=== PATIENT | female | born 2005 | race Caucasian/White ===

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

== ENCOUNTER 2023-03-28 11:07 | Outpatient (CLI) | payer MEDICAID, SELFPAY ==
--- NOTE | 2023-03-28 11:19 | US_ITS ---
WS: [id number] EARLY OBSTETRICAL ULTRASOUND (<14 WEEKS). HISTORY: FIRST , FIRST TRIMESTER COMPARISON: None available. Single intrauterine gestational sac is identified. Cardiac activity at 157 BPM. [place]-rump length maria eugenia sures 3.4 cm which corresponds to a gestation of 10w2d. Normal-appearing yolk sac and amnion demonstr ated. No subchorionic hemorrhage. No free fluid. Left ovary is not visualized. Right ovary is negative. IMPRESSION: 1. Single intrauterine gestation of 10 weeks 2 days with an EDC of 10/22/2023. 2. Normal cardiac activity.
== END 2023-03-28 11:08 | disposition home or self-care (01) ==
PROVIDERS: PCP Family Medicine; Visit Provider Family Medicine
DX: Z34.01 Encounter for supervision of normal first pregnancy, first trimester (principal)
CPT/HCPCS: 76801; 76817

== ENCOUNTER 2023-05-24 12:29 | Outpatient (CLI) | payer MEDICAID, SELFPAY ==
--- NOTE | 2023-05-24 12:41 | US_ITS ---
WS: [id number] OBSTETRICAL ULTRASOUND COMPLETE HISTORY: ANATOMY CHECK COMPARISON: 03/28/2023 Quality this examination is compromised by maternal body habitus and early gestational age. Single intrauterine gestation in variable presentation. Cervix is Closed and normal length. Cervical length is 3.3 cm. Normal amount of amniotic fluid surrounds the fetus. Placenta: Posterior, no previa or abruption. Placenta grade 1 Heart: 144 BPM. Four chambers are identified. RIGHT and LEFT outflow tracts are limited but satisfact ory. Anatomy: Intracranial structures and spine are normal. kidneys, stomach and urinary bladd er are unremarkable. Abdominal wall, three-vessel cord and cord insertion site are normal. 4 extremities are present. profile: Unremarkable. Gender: Male. measurements: BPD = 3.9 cm = 17w6d; HC = 15.4 cm = 18w2d; AC = 13.6 cm = 19w0d; FL = 2.9 cm = 19w0d; EFW: 264 g. Not available. Biometry is internally concordant. AGA by ultrasound: 18w4d AARON by ultrasound: 10/21/2023 IMPRESSION: 1. Single intrauterine gestation of 18w4d with an AARON of 10/21/2023. Appropriate growth since the fi rst trimester ultrasound. 2. Unremarkable screening survey of anatomy. Quality is less than optimal due to early gestati onal age and maternal body habitus but no abnormality is identified.
== END 2023-05-24 12:30 | disposition home or self-care (01) ==
PROVIDERS: PCP Family Medicine; Visit Provider Family Medicine
DX: Z34.02 Encounter for supervision of normal first pregnancy, second trimester (principal)
CPT/HCPCS: 76805

== ENCOUNTER 2023-09-06 09:06 | Outpatient (CLI) | payer MEDICAID, SELFPAY ==
--- NOTE | 2023-09-06 09:09 | US_ITS ---
WS: [id number] LIMITED OBSTETRICAL ULTRASOUND HISTORY: UTERINE SIZE-DATE DISCREPANCY,SECOND TRIMESTER COMPARISON: 03/28/2023 Presentation: Vertex. Cervix: Closed and normal length. Placenta: LEFT uterus. No abruption or previa. Grade: 1 HEART: FHR of 136 BPM. measurements: BPD = 8.3 cm = 33w4d; 51% HC = 30.5 cm = 34w0d; 31% AC = 29.4 cm = 33w3d; 55% FL = 6.4 cm = 33w2d; 37% Several pockets of amniotic fluid are identified. The largest pocket measured vertically is 4.0 cm. EFW: 2193 g; 60% AGA by ultrasound: 33w4d AARON by ultrasound: 10/21/2023 IMPRESSION: 1. Single intrauterine gestation of 33 weeks 4 days with an EDC of 10/21/2023. Appropriate growth sin ce the first trimester ultrasound. 2. Grade 1 placenta. 3. No intrauterine growth retardation. 4. Normal amniotic fluid.
== END 2023-09-06 09:07 | disposition home or self-care (01) ==
LOC: RAD 09:06
PROVIDERS: PCP Family Medicine; Visit Provider Family Medicine
DX: O26.843 Uterine size-date discrepancy, third trimester (principal); Z3A.33 33 weeks gestation of pregnancy
CPT/HCPCS: 76816

== ENCOUNTER 2023-10-18 16:46 | Outpatient (CLI) | payer MEDICAID, SELFPAY ==
--- NOTE | 2023-10-18 16:52 | USR_ITS ---
PROCEDURE INFORMATION: Exam: US ; Follow up Exam date and time: 10/18/2023 4:58 PM Age: 17 years old Clinical indication: Screening exam; Routine US, uterus; Additional info: Uterine size discrepancy LABS AND CLINICAL REPORTS: Gestational age (Established): 39 w 2 d Estimated due date (Established): 10/23/2023 TECHNIQUE: Imaging protocol: Transabdominal ultrasound of the uterus, real time with image documentation. Follow-up (eg, re-evaluation of size by measuring standard growth parameters and amniotic fluid volume, re-evaluation of organ system(s) suspected or confirmed to be abnormal on a previous scan). COMPARISON: [place] [id number] 09/06/2023 9:32 AM FINDINGS: Gestation: Single live intrauterine gestation. heart rate: 132 bpm. position: Vertex presentation. Placenta: Grade 2 placenta. Amniotic fluid: Deepest vertical pocket 4.1 cm. stomach: There is fluid in the stomach. BIOMETRY: Estimated weight: 3536.52 g. EFW by AC, BPD, FL, HC, [place] 1985. (54th percentile). Biparietal diameter (BPD): 9.35 cm. EGA (BPD) is 38 w 0 d. 52.8 % percentile Head circumference (HC): 34.13 cm. EGA (HC) is 39 w 2 d. 41 % percentile Abdominal circumference (AC): 34.47 cm. EGA (AC) is 38 w 3 d. 47.7 % percentile Femur length (FL): 7.63 cm. EGA (FL) is 39 w 0 d. 51.6 % percentile Cephalic Index (CI): 78.05. (Normal range: 70 - 86) HC/AC: 0.99. (Normal range: 0.88 - 1.06) FL/HC: 22.36. (Normal range: 20.69 - 23.2) FL/BPD: 81.6. (Normal range: 71 - 87) FL/AC: 22.14. (Normal range: 20 - 24) MATERNAL: Cervix: The cervix is obscured by the head. US/[place] [id number] IMPRESSION: 1. Single live intrauterine gestation of 38 weeks 5 days by current ultrasound for AARON of 10/27/2023. Established AARON is 10/23/2023. AARON by prior ultrasound is 10/21/2023. 2. Estimated weight is 3537 g (54th percentile).
== END 2023-10-18 16:47 | disposition home or self-care (01) ==
LOC: RAD 16:46
PROVIDERS: PCP Family Medicine; Visit Provider Family Medicine
DX: O26.843 Uterine size-date discrepancy, third trimester (principal); Z3A.38 38 weeks gestation of pregnancy
CPT/HCPCS: 76816

== ENCOUNTER 2023-10-21 12:29 | Inpatient (IN) | payer MEDICAID, SELFPAY ==
[2023-10-21] VITALS (74 sets, daily range): BP systolic 98–157; BP diastolic 52–99; PULSE 71–129; RESP 16; TEMP 35.7–36; O2SAT 97–100; BMI 40.4
[2023-10-21 01:27] LABS: Basophils % 0.4 %; Eosinophils # 0.1 10^3/uL (0.0-0.8); Eosinophils % 0.7 %; Hematocrit 35.6 % (36-47); Lymphocytes % 28.5 %; Mean Corpuscular HGB Conc 31.2 g/dL (30-55); Mean Corpuscular Hemoglobin 24.5 pg (27-33); Mean Corpuscular Volume 78.6 fl (85-98); Mean Platelet Volume 13.6 fL (7.4-10.4); Monocytes # 0.9 10^3/uL (0.2-0.9); Monocytes % 8.6 %; Neutrophils # 6.34 10^3/uL (1.8-8.0); Neutrophils % 61.1 %; Nucleated Red Blood Cells % 0 %; Platelet Count 195 10^3/cmm (157-399); Red Blood Count 4.53 10^6/uL (3.85-5.65); Red Cell Distribution Width 14.3 % (12.1-15.1); White Blood Count 10.36 10^3/uL (4.5-13.0)
[2023-10-21] MEDS: miSOPROStol 100 mcg tablet 25 MCG VAGINAL ×3 (02:00→13:50)
--- NOTE | 2023-10-21 02:45 | PC.NURSE ---
This RN performed bedside ultrasound scan per orders from Dr. Seals to confirm vertex position. Scan printed and placed in chart.
--- NOTE | 2023-10-21 07:23 | P.HP_ITS ---
Providers/Chief Complaint 2 Admitting Physician: Nenita Seals DO Primary Care Provider: Nenita Seals DO Chief Complaint: IOL HPI [employer] History of Present Illness Shashi Lai is a 17 year old female at 39w5d presenting for induction of labor. PMHx unremarkable. course complicated by chlamydia infection- treated with negative JOHAN, itching in the 3rd trimester with normal bile acids on multiple draws. Denies cramping/contractions, LOF, vaginal bleeding prior to admission. Good movement. care was good and starting in first trimester at [facility]. Fundal heights have been greater than dates with 2 growth US wnl- EFW from US on 10/18/23 3536g- 54th percentile. Present Details : 1 Para: 0 Labs Blood type OB HPI: A (+) positive Rubella: Immune RPR: Negative GBS: Negative HBsAG: Negative Other Lab Information: HCV ab negative HIV negative Initial H/H 13.4/41.4 Gonorrhea negative Chlamydia positive on 03/08/23 with negative JOHAN 04/23/23 UCx negative 1hr GTT passed- 112 3rd trimester H/H 11.7/35.9 Review of Systems 2 Const: Denies: fever(s) or chills Card: Denies: chest pain, palpitations or edema Resp: Denies: dyspnea or productive cough : Denies: genital lesions, genital pruritis or vaginal bleeding Psych: Denies: anxiety or depression Medications/Allergies Home Medications Medication Instructions Recorded Confirmed Last Taken Type No Known Home Medications 10/21/23 10/21/23 Unknown History Allergies Allergy/AdvReac Type Severity Reaction Status Date / Time No Known Allergies Allergy Verified 10/21/23 02:51 History History History 2 1 Term 0 0 Miscarriages/Ectopic 0 Living Children 0 Vitals/I&O/Wt Last Vital Signs Temp 96.8 F L 10/21/23 00:39 Pulse 106 H 10/21/23 06:37 Resp 16 10/21/23 01:02 BP 117/75 10/21/23 06:37 O2 Del Method Room Air 10/21/23 01:08 Weight last 48 hrs Weight 243 lb Physical Exam 2 Const: COMMON NORMALS: no acute distress, healthy appearing and alert Resp: COMMON NORMALS: normal respiratory effort and clear to auscultation bilaterally Cardio: COMMON NORMALS: regular rate, regular rhythm, S1 normal heart sound present, S2 normal heart sound present and No murmurs present (Cardio) : OTHER: Gravid consistent with dates SVE on admission per nursing 0.5cm/0/high, anterior, firm Extremity: NARRATIVE EXTREMITY EXAM: No LE edema Skin: NARRATIVE SKIN EXAM: No rash on visible exposed area Data 10/21/23 00:23 Results Labs OB ([facility]): 2 Obstetrics 10/18/23 Blood Type A Positive 10/21/23 Antibody Screen Negative 10/21/23 Hct 35.6 % (36-47) L 10/21/23 Hgb 11.10 g/dL (12.4-14.8) L 10/21/23 Rho(D) Type Rh positive 10/21/23 Plt Count 195 10^3/cmm (157-399) 10/21/23 A&P Assessment and plan (1) Elective induction of labor planned: (2) Term : Plan 17yo at 39w5d admitted for elective induction of labor. Routine CBC, blood typing. FHT Category 1 Start with cytotec dose recheck in 4 hours. Intermittent EFM as long as Category 1 FHT. Fentanyl protocol, may have epidural when desired. NPO for now. Attestations 2 Medical Necessity Statement*: Shashi Lai's hospital stay will require greater than 2 midnights for induction of labor, delivery and care. Coding Level of Care Code Acute Code for Chg Fwd Diagnoses Elective induction of labor planned Term Z34.90
[2023-10-21] MEDS: acetaminophen 325 mg Tablet 650 MG PO (13:57)
[2023-10-21] MEDS: hyDROXYzine 25 mg Capsule 50 MG PO (13:58)
[2023-10-21] MEDS: lactated ringers 1,000 ML 999 ML IV (18:31)
[2023-10-21] MEDS: dextrose 5%-lactated ringers 1,000 ML 125 ML IV (20:00)
[2023-10-21] MEDS: ROPivacaine syringe 100 MG/50 ML SYRINGE 10 MG EPIDURAL (20:41)
--- NOTE | 2023-10-21 20:44 | P.ANESASSM_ITS ---
Pre-Anesthetic Assessment Height/Weight: Height 1.65 m Weight 110.223 kg Temp Pulse Resp BP Pulse Ox O2 Del Method 96.6 F L 102 H 16 110/69 99 Room Air 10/21/23 15:49 10/21/23 20:40 10/21/23 11:40 10/21/23 20:40 10/21/23 20:40 10/21/23 01:08 Preop Diagnosis: IUP Labor Epidural Familial anesthetic complications: None Was Beta Daryl taken within 24 hours: N/A Was Clonidine taken within 24 hours: N/A Last intake: 10/21/23 1400 MEAL CLEARS- CURRENT Social No alcohol and No tobacco Exam alert, oriented x 3 and clear to auscultation bilaterally Airway Submandibular: within normal limits Cervical ROM: within normal limits Mallampati: Class II Dentition: full History/ROS No significant history except as noted CV/HEM None reported None reported Hepatic None reported GI Gastroesophageal Reflux Disease Metabolic Morbid Obesity [facility] [place] None reported Neuropsych None reported Anesthetic Plan ASA status: 2 Anesthesia: Regional (specify below) Other: Labor Epidural Medications/Allergies Home Medications Medication Instructions Recorded Confirmed Last Taken Type No Known Home Medications 10/21/23 10/21/23 Unknown History Allergies Allergy/AdvReac Type Severity Reaction Status Date / Time No Known Allergies Allergy Verified 10/21/23 02:51 Current Medications Generic Name Dose Route Start Last Admin Trade Name Freq PRN Reason Stop Dose Admin Acetaminophen 650 mg 10/21/23 01:02 10/21/23 13:57 Acetaminophen 325 Mg Tablet PO 650 mg Q6H PRN Administration Mild pain or temp > 100.4 Hydroxyzine Pamoate 50 mg 10/21/23 01:02 10/21/23 13:58 Hydroxyzine 25 Mg Capsule PO 50 mg QID PRN Administration sleep, agitation or itching Dextrose/Lactated Ringer's 1,000 mls @ 125 mls/hr 10/21/23 01:15 10/21/23 20:00 Dextrose 5%-Lactated Ringers IV 125 mls/hr .Q8H RAMYA Administration Lactated Ringer's 1,000 mls @ 999 mls/hr 10/21/23 18:10 10/21/23 18:31 Lactated Ringers IV 999 mls/hr .Q1H1M PRN Administration See label comments Ropivacaine 100 mg in 50 mls @ 10 mls/hr 10/21/23 18:15 10/21/23 20:41 Naropin Syringe EPIDURAL 10 mls/hr .Q5H RAMYA Administration PFSH Anesthesia Female Reproductive History : 1 Data Anesthesia 10/21/23 00:23 Short CBC 10/21/23 Range/Units 00:23 WBC 10.36 (4.5-13.0) 10^3/uL Hgb 11.10 L (12.4-14.8) g/dL Hct 35.6 L (36-47) % MCV 78.6 L (85-98) fl Plt Count 195 (157-399) 10^3/cmm Neut % (Auto) 61.1 % Neut # (Auto) 6.34 (1.8-8.0) 10^3/uL Blood Bank 10/21/23 00:23 Blood Type A Positive Rho(D) Type Rh positive Antibody Screen Negative Cardiac Studies: 2 No Data to Display Anesthesia Procedures Epidural Time Out Performed: Yes Consents Signed: Procedure Consent Consent: from patient, risks and benefits reviewed and patient agrees to proceed Lumbar Level: L4-L5 Epidural position: sitting Epidural procedure: sterile prep of area, 1% lidocaine to numb the area, negative for paresthesia passed, test dose given, 1.5% xylocaine 1:200k epi, placed PCEA, no systemic response, sterile dressing applied, L.U.D. no apparent complications and 0.2% Ropiavacaine @ mls/hr (10) Additional Comments: DEBBIE @ 9cm , first attempt, - heme -csf. catheter threaded to 15cm with ease. Adequate analgesia achieved.
[2023-10-21] MEDS: oxytocin 30 UNIT/500 ML BAG IV (21:34)
[2023-10-22] VITALS (21 sets, daily range): BP systolic 103–141; BP diastolic 63–91; PULSE 74–136; TEMP 36.2
--- NOTE | 2023-10-22 02:07 | P.PCNOB_ITS ---
Delivery Note: Date of delivery: October 22, 2023 Pre-delivery diagnoses: Term Elective induction of labor Post-delivery diagnoses: Term delivery of viable male Procedure: Spontaneous vaginal delivery Delivering Physician: Nenita Seals DO Estimated blood loss (mL): 200 Pre-Delivery Course: She was admitted on 10/21/2023 for elective induction of labor. Initial SVE was 0.5/0/high. She was given 1 dose Cytotec with SVE following 4 hours 1/10/-4. Second dose of Cytotec was placed and following 4 hours she was with SVE of 1/50/-4. She was then allowed to eat and ambulate and a third dose of Cytotec was placed and following she developed painful contractions and after 4 hours SVE was 2/80/-3. heart tones remained category 1. At that point she received epidural and at approximately 8 on 10/20 was noted to have SROM with clear fluid. She was subsequently started on low-dose Pitocin and progressed somewhat quickly and appropriately to complete. Delivery: Patient progressed to complete. Patient placed in lithotomy position. Patient pushed with adequate effort. Head delivered in OA position, loose nuchal cord was present and delivered through. Shoulders and rest of body delivered without difficulty with epidural anesthesia. Mouth and nares bulb suctioned. Infant placed on maternal abdomen. Cord clamped and cut after 1 minute delay. Placenta spontaneously delivered and intact. Pitocin started. Fundus was noted to be firm. The vagina and cervix were inspected and midline second-degree vaginal laceration was noted. This was repaired with a 3-0 Vicryl suture . Right periurethral abrasion noted but found to be hemostatic. Fundus was again noted to be firm. Male born at 0125 with 9/9 weighing 7 pounds 14 ounces and measuring 21 in length, 13 inches head circumference and 14 inches chest circumference Placenta noted to be intact with centrally inserted umbilical cord and three- vessel cord. Complications: Maternal none none History History History 1 Term 1 0 Miscarriages/Ectopic 0 Living Children 1 A&P Assessment and plan (1) Spontaneous vaginal delivery: Coding Level of Care Code Acute Code for Chg Fwd Diagnoses Spontaneous vaginal delivery O80
[2023-10-22] MEDS: dextrose 5%-lactated ringers 1,000 ML 122 ML IV (03:12)
[2023-10-22] MEDS: lanolin oint 7 gm 1 APPLIC TOPICAL (05:11)
[2023-10-22] MEDS: benzocaine-menthol 78 gm Canister 1 SPRAY TOPICAL (05:12)
[2023-10-22] MEDS: acetaminophen 325 mg Tablet 650 MG PO (05:12)
--- NOTE | 2023-10-22 06:07 | PC.NURSE ---
pushing in closed knee position
--- NOTE | 2023-10-22 06:08 | PC.NURSE ---
pushing in gisella position
--- NOTE | 2023-10-22 06:08 | PC.NURSE ---
Addendum entered by ALCON Anaya 10/22/23 06:10: patient pushing in lithotomy Original Note: pushing in gisella position
[2023-10-22] MEDS: docusate sodium 100 mg Capsule PO (09:05)
[2023-10-22] MEDS: prenatal vitamin Capsule 1 CAP PO (09:05)
[2023-10-22] MEDS: ibuprofen 800 mg tablet PO ×3 (09:05→21:20)
[2023-10-22 16:17] LABS: Hematocrit 33.5 % (36-47); Mean Corpuscular HGB Conc 31.3 g/dL (30-55); Mean Corpuscular Hemoglobin 24.4 pg (27-33); Mean Corpuscular Volume 77.7 fl (85-98); Mean Platelet Volume 12.7 fL (7.4-10.4); Platelet Count 180 10^3/cmm (157-399); Red Blood Count 4.31 10^6/uL (3.85-5.65); Red Cell Distribution Width 14.4 % (12.1-15.1); White Blood Count 15.96 10^3/uL (4.5-13.0)
[2023-10-23 03:59] VITALS: TEMP 36
[2023-10-23 04:00] VITALS: BP 117/78; PULSE 97
[2023-10-23] MEDS: acetaminophen 325 mg Tablet 650 MG PO ×2 (06:11→12:06)
--- NOTE | 2023-10-23 08:00 | ANE.PACU2 ---
Inpatient post-anesthesia follow up: Airway intact: Yes Vital signs: Temperature 97.2 F Pulse Rate 77 Respiratory Rate 17 Blood Pressure 113/72 Pulse Oximetry 100 Oxygen Delivery Me thod Room Air Oxygen Flow Rate Fraction of Inspir ed Oxygen Hydration adequate: Yes Nausea and vomiting: No Pain level: 1 Mental status: Baseline Epidural Start/End: Epidural Start Date: 10/21/23 Epidural Start Time: 19:49 Epidural End Date: 10/22/23 Epidural End Time: 03:46
--- NOTE | 2023-10-23 08:45 | P.DS_ITS ---
Discharge Providers CONCERT SINGER Date of Admission: 10/21/23 12:29 Date of Discharge: 10/23/23 Attending Provider at Admission: Nenita Seals DO Attending Provider at Discharge: Nenita Seals DO Primary Care Provider: Nenita Seals DO Diagnoses at Discharge Discharge Diagnosis (1) Spontaneous vaginal delivery: Status: Acute Reason for Visit Reason for Visit: IOL Hospital Course Hospital Course Estimated blood loss (mL): 200 Pre-Delivery Course: She was admitted on 10/21/2023 for elective induction of labor. Initial SVE was 0.5/0/high. She was given 1 dose Cytotec with SVE following 4 hours 1/10/-4. Second dose of Cytotec was placed and following 4 hours she was with SVE of 1/50/-4. She was then allowed to eat and ambulate and a third dose of Cytotec was placed and following she developed painful contractions and after 4 hours SVE was 2/80/-3. heart tones remained category 1. At that point she received epidural and at approximately 2057 on 10/20 was noted to have SROM with clear fluid. She was subsequently started on low-dose Pitocin and progressed somewhat quickly and appropriately to complete. Delivery: Patient progressed to complete. Patient placed in lithotomy position. Patient pushed with adequate effort. Head delivered in OA position, loose nuchal cord was present and delivered through. Shoulders and rest of body delivered without difficulty with epidural anesthesia. Mouth and nares bulb suctioned. Infant placed on maternal abdomen. Cord clamped and cut after 1 minute delay. Placenta spontaneously delivered and intact. Pitocin started. Fundus was noted to be firm. The vagina and cervix were inspected and midline second-degree vaginal laceration was noted. This was repaired with a 3-0 Vicryl suture . Right periurethral abrasion noted but found to be hemostatic. Fundus was again noted to be firm. Male born at 0125 with 9/9 weighing 7 pounds 14 ounces and measuring 21 in length, 13 inches head circumference and 14 inches chest circumference Placenta noted to be intact with centrally inserted umbilical cord and three- vessel cord. Complications: Maternal none none course: Patient underwent on 10/22/23. course was uncomplicated. Following delivery patient ambulated well, tolerated a normal diet without nausea or vomiting. Pain was well controlled on PO medications, and bottle feeding , no leg/calf pain, no calf/leg swelling, normal urination, passing gas and normal bowel movements. Vaginal bleeding thin lochia and decreasing. labs significant for hemoglobin of 10.5 down from 11.1 on admission. Follow-up planned for 2 and 6 weeks . Warning signs for endometritis, pre-eclampsia, DVT/PE, mastitis were reviewed, discussed additional warning signs including increased vaginal bleeding, worsening abdominal pain. Pelvic rest and activity precautions reviewed as well. She is discharged on 10/23/23 in stable condition. Information Peripartum Data: Infant Delivery Method: Vaginal Physical Exam Const: COMMON NORMALS: no acute distress, healthy appearing and alert Resp: COMMON NORMALS: normal respiratory effort and clear to auscultation bilaterally AUSCULTATION: clear to auscultation bilaterally Cardio: COMMON NORMALS: regular rate, regular rhythm, S1 normal heart sound present, S2 normal heart sound present and No murmurs present (Cardio) RATE: regular rate RHYTHM: regular rhythm HEART SOUNDS: S1 normal heart sound present and S2 normal heart sound present : OTHER: Uterine fundus firm and below the umbilicus Extremity: NARRATIVE EXTREMITY EXAM: No LE edema Neuro: SENSORIUM/ORIENTATION: Yes alert Skin: NARRATIVE SKIN EXAM: No rash on visible exposed area Urinary Catheter Management: Le Latex: Cath Placed During This Visit: yes, but has since been removed by the nurse Reason for Continuing Indwelling Catheter: Decision to DC Catheter Urinary Catheter Date of Insertion: 10/21/23 Urinary Catheter Time of Insertion: 21:30 Date Urinary Catheter Removed: 10/22/23 Time Urinary Catheter Discontinued: 01:00 History History History 1 Term 1 0 Miscarriages/Ectopic 0 Living Children 1 Discharge Data Studies Completed and Pending Laboratory Results WBC 15.96 10^3/uL (4.5-13.0) H 10/22/23 14:44 RBC 4.31 10^6/uL (3.85-5.65) 10/22/23 14:44 Hgb 10.50 g/dL (12.4-14.8) L 10/22/23 14:44 Hct 33.5 % (36-47) L 10/22/23 14:44 MCV 77.7 fl (85-98) L 10/22/23 14:44 MCH 24.4 pg (27-33) L 10/22/23 14:44 MCHC 31.3 g/dL (30-55) 10/22/23 14:44 RDW 14.4 % (12.1-15.1) 10/22/23 14:44 Plt Count 180 10^3/cmm (157-399) 10/22/23 14:44 MPV 12.7 fL (7.4-10.4) H 10/22/23 14:44 Neut % (Auto) 61.1 % 10/21/23 00:23 Lymph % (Auto) 28.5 % 10/21/23 00:23 [place] % (Auto) 8.6 % 10/21/23 00:23 Eos % (Auto) 0.7 % 10/21/23 00:23 Baso % (Auto) 0.4 % 10/21/23 00:23 Neut # (Auto) 6.34 10^3/uL (1.8-8.0) 10/21/23 00:23 Lymph # (Auto) 3.0 10^3/uL (1.5-6.5) 10/21/23 00:23 [place] # (Auto) 0.9 10^3/uL (0.2-0.9) 10/21/23 00:23 Eos # (Auto) 0.1 10^3/uL (0.0-0.8) 10/21/23 00:23 Baso # (Auto) 0.0 10^3/uL (0.0-0.1) 10/21/23 00:23 Nucleated RBC % (auto) 0 % 10/21/23 00:23 Nucleated RBCs # 0.0 /100WBC 10/21/23 00:23 Blood Type A Positive 10/21/23 00:23 Rho(D) Type Rh positive 10/21/23 00:23 Antibody Screen Negative 10/21/23 00:23 Vitals Last Vital Signs Temp 96.8 F L 10/23/23 03:59 Pulse 97 10/23/23 04:00 Resp 16 10/21/23 11:40 BP 117/78 10/23/23 04:00 Pulse Ox 100 10/21/23 21:00 O2 Del Method Room Air 10/21/23 01:08 Results Labs OB ([facility]): Obstetrics US 10/18/23 Blood Type A Positive 10/21/23 Antibody Screen Negative 10/21/23 Hct 33.5 % (36-47) L 10/22/23 Hgb 10.50 g/dL (12.4-14.8) L 10/22/23 Rho(D) Type Rh positive 10/21/23 Plt Count 180 10^3/cmm (157-399) 10/22/23 Discharge Plan Discharge Patient Disposition: Home Condition: Stable Prescriptions: New ibuprofen 800 mg Tablet 800 mg PO TID Qty: 90 0RF docusate sodium 100 mg Capsule 100 mg PO BID Qty: 60 0RF Discharge Orders: Discharge Order (Routine); Ordered 10/23/23 Ordered By: Nenita Seals Referrals: Nenita Seals DO [Primary Care Provider] - 12/19/23 2:45 pm (11/05/23 @ 0930) Discharge Diet: Regular Discharge Activity: Increase activity as tolerated Patient Instructions: Depression (DC), Opioid Safety (DC), Preeclampsia and Eclampsia After Delivery (GEN), Hemorrhage (DC), OB Discharge Report, OB Food/Drug Interaction Guide, Opioid Safety, OB [facility] - [facility], Abnormal Bleeding Activity Restrictions/Additional Instructions: Pelvic rest for 6 weeks. Follow-up with Dr. Seals at 2 and 6 weeks . Discharge Attestations CONCERT SINGER Time Spent in Discharge Care*: less than 30 min Coding Level of Care Code Acute Code for Chg Fwd Diagnoses Spontaneous vaginal delivery O80
[2023-10-23 09:40] VITALS: BP 123/75; PULSE 112
[2023-10-23] MEDS: docusate sodium 100 mg Capsule PO (09:40)
[2023-10-23] MEDS: ibuprofen 800 mg tablet PO (09:40)
[2023-10-23 09:41] VITALS: TEMP 36.2
[2023-10-23] MEDS: prenatal vitamin Capsule 1 CAP PO (09:41)
[2023-10-23 11:49] VITALS: BP 113/72; PULSE 77
[2023-10-23 12:13] VITALS: BP 113/72; PULSE 77; RESP 17
== END 2023-10-23 12:13 | disposition home or self-care (01) | DRG 807 ==
PROVIDERS: Admitting Provider Family Medicine; PCP Family Medicine; Visit Provider Family Medicine
DX: O69.81X0 Labor and delivery complicated by cord around neck, without compression, not applicable or unspecified (principal); Z37.0 Single live birth; Z3A.39 39 weeks gestation of pregnancy; O70.1 Second degree perineal laceration during delivery
CPT/HCPCS: 36415; 51702; 59025; 59409; 85025; 85027; 86850; 86900; 98960; 99211; J2590; J2795; J7120; J7121

== ENCOUNTER 2024-03-23 12:53 | Outpatient (CLI) | payer MEDICAID, SELFPAY ==
--- NOTE | 2024-03-23 12:59 | US_ITS ---
WS: [id number] EARLY OBSTETRICAL ULTRASOUND (<14 WEEKS). HISTORY: ,FIRST TRIMESTER COMPARISON: None available. Only transabdominal imaging submitted. Single intrauterine gestational sac is identified. Cardiac activity at 173 BPM. [place]-rump length maria eugenia sures 2.2 cm which corresponds to a gestation of 8w6d. Normal-appearing yolk sac and amnion demonstra fide. No subchorionic hemorrhage. No free fluid. LEFT ovary not visualized. US/US OB <= 14 weeks fetus [id number] IMPRESSION: 1. Single intrauterine gestation of 8w5d with an EDC of 10/28/2024. 2. Normal heart rate. 3. Only transabdominal imaging submitted.
== END 2024-03-23 12:54 | disposition home or self-care (01) ==
LOC: RAD 12:54
PROVIDERS: PCP Family Medicine; Visit Provider Family Medicine
DX: Z34.81 Encounter for supervision of other normal pregnancy, first trimester (principal)
CPT/HCPCS: 76801

== ENCOUNTER 2024-06-03 10:54 | Outpatient (CLI) | payer MEDICAID, SELFPAY ==
--- NOTE | 2024-06-03 10:58 | USR_ITS ---
PROCEDURE INFORMATION: Exam: US After First Trimester, Transabdominal Exam date and time: 06/03/2024 11:24 AM Age: 18 years old Clinical indication: Screening exam; Routine US, uterus; Additional info: Z34.81 encounter for supervision of other normal LABS AND CLINICAL REPORTS: Gestational age (Established): 19 w 0 d. Same as for ultrasound measurements. Estimated due date (Established): 10/28/2024. Same as for ultrasound measurements. TECHNIQUE: Imaging protocol: Real-time transabdominal obstetrical ultrasound of the maternal pelvis and a second or third trimester with image documentation. COMPARISON: US OB <= 14 weeks fetus [id number] 03/23/2024 1:05 PM FINDINGS: Gestation: Single live intrauterine gestation. heart rate: 139 bpm presentation and position: Cephalic presentation. Placenta: Anterior placenta without obvious previa. Amniotic fluid (Qualitative): Qualitatively the amniotic fluid is normal for gestational age. Amniotic fluid index: Not calculated. ANATOMY: midline falx: Normal cerebellum: Normal lateral ventricles: Normal cisterna magna: Normal choroid plexus: Normal face: Not well visualized.] heart four-chamber view, heart size and position: Normal heart right ventricular outflow tract: Normal heart left ventricular outflow tract: Normal kidneys: Normal stomach: Normal urinary bladder: Normal spine: Normal Umbilical cord and insertion: Normal upper limbs: Normal lower limbs: Normal external genitalia: Appears female BIOMETRY: Gestational age (AUA): 19 weeks and 0 days. Same for menstrual dating. Estimated due date (AUA): October 28, 2024. Same for menstrual dating. Estimated weight: 263.02 g or 9 oz. This is the 39.1 percentile. EFW by AC, BPD, FL, HC, [place]lock 1985 Biparietal diameter (BPD): 4.34 cm. EGA (BPD) is 19 w 1 d. 56.4 % percentile Head circumference (HC): 16.46 cm. EGA (HC) is 19 w 1 d. 51.9 % percentile Abdominal circumference (AC): 13.05 cm. EGA (AC) is 18 w 4 d. 31.7 % percentile Femur length (FL): 2.97 cm. EGA (FL) is 19 w 1 d. 49.3 % percentile HC/AC: 1.26. (Normal range: 1.09 - 1.26) FL/HC: 18.04. (Normal range: 16.1 - 18.3) FL/BPD: 68.43 FL/AC: 22.76 MATERNAL: Uterus: Otherwise, unremarkable. Cervix: Cervical length measures 5.4 cm. Most of the cervix is obscured by shadowing. The small part of the cervix that is visible is grossly unremarkable. Right ovary/adnexa: Obscured by lack of adequate acoustic window. Left ovary/adnexa: Obscured by lack of adequate acoustic window. Intraperitoneal space: No intraperitoneal free fluid. US/US OB >= 14 weeks fetus [id number] IMPRESSION: 1. facial structures are not well visualized. Otherwise, unremarkable survey. 2. Most of the cervix is obscured by shadowing. The small part of the cervix that is visible is grossly unremarkable. 3. Otherwise, unremarkable obstetrical ultrasound.
== END 2024-06-03 10:55 | disposition home or self-care (01) ==
LOC: RAD 10:55
PROVIDERS: PCP Family Medicine; Visit Provider Family Medicine
DX: Z34.81 Encounter for supervision of other normal pregnancy, first trimester (principal)
CPT/HCPCS: 76805

== ENCOUNTER 2024-06-23 06:55 | Outpatient (CLI) | payer MEDICAID, SELFPAY ==
--- NOTE | 2024-06-23 07:00 | USR_ITS ---
PROCEDURE INFORMATION: Exam: US , Limited Exam date and time: 06/23/2024 7:11 AM Age: 18 years old Clinical indication: Screening exam; Routine US, uterus; Additional info: F/u facial structures LABS AND CLINICAL REPORTS: Gestational age (Established): 21 w 6 d Estimated due date (Established): 10/28/2024 TECHNIQUE: Imaging protocol: Real-time ultrasound of the maternal uterus with image documentation. Exam focused on the clinical indication. COMPARISON: US OB >= 14 weeks fetus [id number] 06/03/2024 11:24 AM FINDINGS: Gestation: Fetus is in transverse position. heart rate: 142 bpm Placenta: Anterior placenta. No evidence of placenta previa. ANATOMY: face: Profile including nose/lips, face and orbits within normal limits. heart right ventricular outflow tract: Right ventricular outflow tract within normal limits. heart left ventricular outflow tract: Left ventricular outflow tract within normal limits. MATERNAL: Cervix: Cervical length measures 4.4 cm. Other findings: Four-chamber heart within normal limits. US/US OB limited [id number] IMPRESSION: 1. Single intrauterine with normal heart rate. 2. profile, face, lips/nose, and orbits appear within normal limits. Remaining anatomy visualized on prior examination.
== END 2024-06-23 06:56 | disposition home or self-care (01) ==
LOC: RAD 06:55
PROVIDERS: PCP Family Medicine; Visit Provider Family Medicine
DX: P09.8 Other abnormal findings on neonatal screening (principal)
CPT/HCPCS: 76815

== ENCOUNTER 2024-10-20 14:05 | Inpatient (IN) | payer MEDICAID, SELFPAY ==
[2024-10-20] VITALS (33 sets, daily range): BP systolic 108–137; BP diastolic 58–86; PULSE 74–144; RESP 16–18; TEMP 36.8–36.9; O2SAT 97–100; BMI 37.4
--- NOTE | 2024-10-20 14:29 | P.HP_ITS ---
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 Denies LOF. Reports small amount of mucousy bloody discharge. Good movement. Past medical history significant for close interval . She last delivered in October 2023. labs significant for asymptomatic bacteriuria- she completed treatment with negative follow-up urine culture. care was good and starting in first trimester. Present Details Para: 1 Labs Blood type OB HPI: A (+) positive Rubella: Immune RPR: Negative GBS: Negative HBsAG: Negative Other Lab Information: Antibody screen negative GC/Chlamydia negative UCx E.coli- treated with negative follow-up UCx Hep C ab negative HIV negative Initial H/H 11.2/35.4 1hr GTT passed (85) 3rd trimester H/H 10.6/34.0 Review of Systems 2 Const: Denies: fever(s) or chills Card: Denies: chest pain or palpitations Resp: Denies: dyspnea, productive cough, non-productive cough or wheezing Medications/Allergies Home Medications ?Medication ?Instructions ?Recorded ?Confirmed ?Last Taken ?Type docusate sodium 100 mg capsule 100 mg PO BID #60 caps 10/23/23 Unknown Rx ibuprofen 800 mg tablet 800 mg PO TID #90 tabs 10/22 Unknown Rx 10/20/24 10/19/24 22:30 Hi story ferrous sulfate 325 mg (65 mg 325 mg PO DAILY 10/20/24 10/20/24 10/19/24 22:30 History iron) tablet (Iron (ferrous sulfate)) Allergies Allergy/AdvReac Type Severity Reaction Status Date / Time No Known Allergies Allergy Verified 10/21/23 02:51 History History History 2 2 Term 1 0 Miscarriages/Ectopic 0 Living Children 1 Vitals/I&O/Wt Last Vital Signs Pulse 86 10/20/24 14:03 BP 123/86 10/20/24 14:03 Weight last 48 hrs Weight 225 lb Physical Exam 2 Const: COMMON NORMALS: no acute distress, healthy appearing, alert and well nourished Resp: COMMON NORMALS: normal respiratory effort and clear to auscultation bilaterally Cardio: COMMON NORMALS: no JVD, regular rate, regular rhythm and No murmurs present (Cardio) Extremity: OTHER: No LE edema Psych: COMMON NORMALS: mental status grossly normal, cooperative, normal affect and speech normal Data 10/20/24 14:30 Results Labs OB ([facility]): 2 Obstetrics US 06/23/24 A&P Assessment and plan (1) Spontaneous onset of labor: Plan 18yo at 38w6d admitted for labor. Initial SVE in office , changed to 4cm over 2 hours Fentanyl protocol, epidural when desired Routine CBC, blood typing Continuous EFM Otherwise expectant management PDMP PDMP Reviewed: Not Reviewed Attestations 2 Medical Necessity Statement*: Shashi Lai's hospital stay will require greater than 2 midnights for labor and delivery and care. Coding Level of Care Code Acute Code for Chg Fwd Diagnoses Spontaneous onset of labor
[2024-10-20 15:17] LABS: Basophils % 0.4 %; Eosinophils % 0.3 %; Lymphocytes # 1.7 10^3/uL (1.5-6.5); Lymphocytes % 22.2 %; Mean Corpuscular HGB Conc 32.8 g/dL (30-55); Mean Corpuscular Hemoglobin 26.8 pg (27-33); Mean Platelet Volume 11.9 fL (7.4-10.4); Monocytes # 0.4 10^3/uL (0.2-0.9); Monocytes % 5.4 %; Neutrophils # 5.38 10^3/uL (1.8-8.0); Neutrophils % 71.2 %; Nucleated Red Blood Cells % 0 %; Platelet Count 164 10^3/cmm (157-399); Red Blood Count 4.88 10^6/uL (3.85-5.65); Red Cell Distribution Width 21.1 % (12.1-15.1); White Blood Count 7.56 10^3/uL (4.5-13.0)
[2024-10-20 15:22] LABS: Slide Review Slide Review Perform
[2024-10-20] MEDS: ROPivacaine syringe 100 MG/50 ML SYRINGE 13 MG EPIDURAL (15:22)
[2024-10-20] MEDS: sodium chloride 0.9% 1,000 ML 999 ML IV (15:22)
--- NOTE | 2024-10-20 15:40 | ANES.PROC ---
Anesthesia Procedures Procedure/Date: 10/20/24 Epidural: Time Out Performed: Yes Consents Signed: Procedure Consent Consent: from patient, risks and benefits reviewed and patient agrees to proceed Lumbar Level: L2-L3 Epidural position: sitting Epidural procedure: sterile prep of area, 1% lidocaine to numb the area, neg for paresthesia, test dose given (1525), 1.5% xylocaine 1:200k epi, no systemic response and sterile dressing applied Other Information: Given Marcaine 0.25% (8mls) fractionated after neg asp. Ropivicaine epidural infusion started at 13ml/hr.
[2024-10-20] MEDS: oxytocin 30 UNIT/500 ML BAG 999 UNIT IV (16:22)
[2024-10-20] MEDS: lidocaine 2% INJ 20 mL INJECTION (16:23)
--- NOTE | 2024-10-20 16:31 | P.PCNOB_ITS ---
Delivery Note: Date of delivery: October 20, 2024 Pre-delivery diagnoses: Term Spontaneous labor Post-delivery diagnoses: Term delivery of viable female Procedure: Spontaneous vaginal delivery Delivering Physician: Nenita Seals DO Estimated blood loss (mL): 150 Pre-Delivery Course: Admitted on 10/20/2024 in spontaneous active labor. SROM with clear fluid at approximately 1410. She then obtained epidural for anesthesia and quickly progressed to complete. Delivery: Patient progressed to complete. Patient placed in lithotomy position. MSAF noted at that time. Patient pushed with adequate effort. Head delivered in RICHARD position, no nuchal cord was present. Shoulders and rest of body delivered without difficulty with epidural anesthesia. Mouth and nares bulb suctioned. Cord clamped and cut after 1 minute delay. placed on maternal abdomen. Placenta spontaneously delivered and noted to be intact. Pitocin started. Fundus was noted to be boggy but with external massage became firm. The vagina and cervix were inspected and first-degree midline and bilateral periurethral abrasion lacerations were noted. First-degree repaired with 3-0 Vicryl. Fundus was again noted firm but with small amount of bleeding with massage. At that time lower uterine segment was swept free of clots after which bleeding improved. Female born at 1605 with 8/9 weighing 3400g and measuring 20.5 in length, 13.25 chest circumference, 13.75 in head circumference Placenta noted to be intact with centrally inserted umbilical cord with three- vessel cord. Complications: Maternal none Infant none History History History 2 Term 2 0 Miscarriages/Ectopic 0 Living Children 2 A&P Assessment and plan (1) Spontaneous vaginal delivery: PDMP PDMP Reviewed: Not Reviewed Coding Level of Care Code Acute Code for Chg Fwd Diagnoses Spontaneous vaginal delivery O80
[2024-10-20] MEDS: benzocaine-menthol 78 gm Canister 1 SPRAY TOPICAL (21:36)
[2024-10-20] MEDS: docusate sodium 100 mg Capsule PO (21:36)
[2024-10-20] MEDS: ibuprofen 800 mg tablet PO (21:36)
[2024-10-21 01:50] VITALS: BP 107/58; PULSE 62; RESP 16
[2024-10-21 04:00] VITALS: BP 109/61; PULSE 74; RESP 16; TEMP 36.7
[2024-10-21 06:58] LABS: Hematocrit 32.2 % (36-47); Mean Corpuscular HGB Conc 31.4 g/dL (30-55); Mean Corpuscular Hemoglobin 25.9 pg (27-33); Mean Corpuscular Volume 82.6 fl (85-98); Mean Platelet Volume 12.4 fL (7.4-10.4); Platelet Count 116 10^3/cmm (157-399); Red Cell Distribution Width 20.6 % (12.1-15.1); White Blood Count 9.45 10^3/uL (4.5-13.0)
[2024-10-21 09:50] VITALS: BP 108/72; PULSE 76; RESP 16; TEMP 36.6
[2024-10-21] MEDS: PRENATAL VIT NO.130/IRON/FOLIC 1 EACH TABLET PO (09:51)
[2024-10-21] MEDS: ibuprofen 800 mg tablet PO ×2 (09:51→16:27)
[2024-10-21] MEDS: docusate sodium 100 mg Capsule PO (09:51)
[2024-10-21] MEDS: ferrous sulfate EC 325 mg Tablet PO (09:51)
[2024-10-21 16:25] VITALS: BP 116/75; PULSE 59; RESP 16; TEMP 36.4; O2SAT 99
--- NOTE | 2024-10-21 18:17 | PM.OBGYDC ---
Discharge Providers ONCOLOGY REP SPECIALIST Date of Admission: 10/20/24 14:05 Date of Discharge: 10/21/24 Attending Provider at Admission: Nenita Seals DO Attending Provider at Discharge: Nenita Seals DO Primary Care Provider: Nenita Seals DO Diagnoses at Discharge Discharge Diagnosis (1) Spontaneous vaginal delivery: Status: Acute Reason for Visit Reason for Visit: CONTRACTIONS SENT OVER FROM OFFICE Hospital Course Hospital Course Pre-Delivery Course: Admitted on 10/20/2024 in spontaneous active labor. SROM with clear fluid at approximately 1410. She then obtained epidural for anesthesia and quickly progressed to complete. Delivery: Patient progressed to complete. Patient placed in lithotomy position. MSAF noted at that time. Patient pushed with adequate effort. Head delivered in RICHARD position, no nuchal cord was present. Shoulders and rest of body delivered without difficulty with epidural anesthesia. Mouth and nares bulb suctioned. Cord clamped and cut after 1 minute delay. placed on maternal abdomen. Placenta spontaneously delivered and noted to be intact. Pitocin started. Fundus was noted to be boggy but with external massage became firm. The vagina and cervix were inspected and first-degree midline and bilateral periurethral abrasion lacerations were noted. First-degree repaired with 3-0 Vicryl. Fundus was again noted firm but with small amount of bleeding with massage. At that time lower uterine segment was swept free of clots after which bleeding improved. Female born at 1605 with 8/9 weighing 3400g and measuring 20.5 in length, 13.25 chest circumference, 13.75 in head circumference Placenta noted to be intact with centrally inserted umbilical cord with three-vessel cord. Complications: Maternal none Infant none course: Patient underwent on 10/20/2024. course was uncomplicated. Following delivery patient ambulated well, tolerated a normal diet without nausea or vomiting. Pain was well-controlled on PO medications, breast and bottlefeeding, no leg/calf pain, no calf/leg swelling, normal urination, passing gas and normal bowel movements. Vaginal bleeding thin lochia and decreasing. labs significant for hemoglobin 10.10 down from 13.1 on admission?she is continued on her home iron supplementation. control was discussed and patient prefers IUD which we will arrange outpatient. Follow-up planned for 2 and 6 weeks . Warning signs for endometritis, pre-eclampsia, DVT/PE, mastitis were reviewed, discussed additional warning signs including increased vaginal bleeding, worsening abdominal pain. Pelvic rest and activity precautions reviewed as well. She is discharged on 10/21/2024 in stable condition. Information Peripartum Data: Delivery Method: Vaginal Physical Exam Const: COMMON NORMALS: no acute distress, healthy appearing, alert and well nourished Neck/C-Spine: COMMON NORMALS: no JVD Resp: COMMON NORMALS: normal respiratory effort and clear to auscultation bilaterally AUSCULTATION: clear to auscultation bilaterally Cardio: COMMON NORMALS: no JVD, regular rate, regular rhythm and No murmurs present (Cardio) RATE: regular rate RHYTHM: regular rhythm : OTHER: Uterine fundus firm and below the umbilicus Extremity: OTHER: No LE edema Neuro: SENSORIUM/ORIENTATION: Yes alert Psych: COMMON NORMALS: mental status grossly normal, cooperative, normal affect and speech normal SPEECH: Yes normal speech History History History 2 Term 2 0 Miscarriages/Ectopic 0 Living Children 2 Discharge Data Studies Completed and Pending Laboratory Results WBC 9.45 10^3/uL (4.5-13.0) 10/21/24 06:46 RBC 3.90 10^6/uL (3.85-5.65) 10/21/24 06:46 Hgb 10.10 g/dL (12.4-14.8) L 10/21/24 06:46 Hct 32.2 % (36-47) L 10/21/24 06:46 MCV 82.6 fl (85-98) L 10/21/24 06:46 MCH 25.9 pg (27-33) L 10/21/24 06:46 MCHC 31.4 g/dL (30-55) 10/21/24 06:46 RDW 20.6 % (12.1-15.1) H 10/21/24 06:46 Plt Count 116 10^3/cmm (157-399) L 10/21/24 06:46 MPV 12.4 fL (7.4-10.4) H 10/21/24 06:46 Neut % (Auto) 71.2 % 10/20/24 14:30 Lymph % (Auto) 22.2 % 10/20/24 14:30 [place] % (Auto) 5.4 % 10/20/24 14:30 Eos % (Auto) 0.3 % 10/20/24 14:30 Baso % (Auto) 0.4 % 10/20/24 14:30 Neut # (Auto) 5.38 10^3/uL (1.8-8.0) 10/20/24 14:30 Lymph # (Auto) 1.7 10^3/uL (1.5-6.5) 10/20/24 14:30 [place] # (Auto) 0.4 10^3/uL (0.2-0.9) 10/20/24 14:30 Eos # (Auto) 0.0 10^3/uL (0.0-0.8) 10/20/24 14:30 Baso # (Auto) 0.0 10^3/uL (0.0-0.1) 10/20/24 14:30 Nucleated RBC % (auto) 0 % 10/20/24 14:30 Nucleated RBCs # 0.0 /100WBC 10/20/24 14:30 Blood Type Cancelled 10/20/24 14:30 Rho(D) Type Cancelled 10/20/24 14:30 Antibody Screen Cancelled 10/20/24 14:30 Vitals Last Vital Signs Temp 97.6 F 10/21/24 16:25 Pulse 59 L 10/21/24 16:25 Resp 16 10/21/24 16:25 BP 116/75 10/21/24 16:25 Pulse Ox 99 10/21/24 16:25 O2 Del Method Room Air 10/21/24 16:25 Results Labs OB ([facility]): Obstetrics US 06/23/24 Blood Type A Positive 10/20/24 Antibody Screen Negative 10/20/24 Hct 32.2 % (36-47) L 10/21/24 Hgb 10.10 g/dL (12.4-14.8) L 10/21/24 Rho(D) Type Rh positive 10/20/24 Plt Count 116 10^3/cmm (157-399) L 10/21/24 Discharge Plan Discharge Patient Disposition: Home Condition: Stable Prescriptions: New ibuprofen 800 mg Tablet 800 mg PO TID Qty: 90 0RF docusate sodium 100 mg Capsule 100 mg PO BID Qty: 60 0RF Continued ferrous sulfate [Iron (ferrous sulfate)] 325 mg (65 mg iron) Tablet 325 mg PO DAILY Discontinued ibuprofen 800 mg Tablet 800 mg PO TID Qty: 90 0RF docusate sodium 100 mg Capsule 100 mg PO BID Qty: 60 0RF Discharge Orders: Discharge Order (Routine); Ordered 10/21/24 Ordered By: Nenita Seals Referrals: Nenita Seals DO [Primary Care Provider] - 11/03/24 2:45 pm (SIX WEEK APPOINTMENT SCHEDULED 12/07/24 @ 3:30 PM) Discharge Diet: Usual diet Discharge Activity: Increase activity as tolerated Patient Instructions: Depression (DC), Opioid Safety (DC), Preeclampsia and Eclampsia After Delivery (GEN), Hemorrhage (DC), OB Discharge Report, OB Food/Drug Interaction Guide, OB Care at Home, Opioid Safety, OB Vaginal Deliveries, Abnormal Bleeding Activity Restrictions/Additional Instructions: Pelvic rest for 6 weeks. Discharge Attestations ONCOLOGY REP SPECIALIST Time Spent in Discharge Care*: less than 30 min Coding Level of Care Code Acute Code for Chg Fwd Diagnoses Spontaneous vaginal delivery O80
[2024-10-21 18:45] VITALS: BP 116/75; PULSE 59; RESP 16; TEMP 36.4; O2SAT 99
--- NOTE | 2024-10-26 13:38 | ANE.PACU2 ---
Inpatient post-anesthesia follow up: Airway intact: Yes Vital signs: Temperature 97.6 F Pulse Rate 59 Respiratory Rate 16 Blood Pressure 116/75 Pulse Oximetry 99 Oxygen Delivery Me thod Room Air Oxygen Flow Rate Fraction of Inspir ed Oxygen Hydration adequate: Yes Nausea and vomiting: No Pain level: 1 Mental status: Baseline Epidural Start/End: Epidural Start Date: 10/20/24 Epidural Start Time: 15:15 Epidural End Date: 10/20/24 Epidural End Time: 17:00
== END 2024-10-21 18:55 | disposition home or self-care (01) | DRG 807 ==
LOC: OPOB 14:06 → OBGYN 14:06
PROVIDERS: Absent Provider Family Medicine; Admitting Provider Family Medicine; PCP Family Medicine; Visit Provider Family Medicine
DX: O70.0 First degree perineal laceration during delivery (principal); Z37.0 Single live birth; Z3A.38 38 weeks gestation of pregnancy
CPT/HCPCS: 36415; 59025; 59409; 85025; 85027; 86850; 86900; 99211; J2590; J2795; J3490; J7030; J9999